=== PATIENT | male | born 1950 | race Two or more races ===

== ENCOUNTER 2024-12-21 06:51 | Inpatient (IN) | payer MEDICARE, OTHER ==
[~2024-12-21] VITALS: Ht 167.6 cm; Wt 85.0 kg
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
[2024-12-21 07:42] LABS: Basophils # (auto) 0 10 ^3/uL (0-0.2); Basophils % (auto) 0.3 % (0.0-2.0); Eosinophils # (auto) 0.1 10 ^3/uL (0-0.8); Eosinophils % (auto) 1.3 % (0.0-7.0); Hematocrit 41.4 % (41.0-53.0); Hemoglobin 14.3 g/dL (13.5-17.5); Lymphocytes # (auto) 2.4 10 ^3/uL (0.4-5.4); Lymphocytes % (auto) 32.8 % (10.0-50.0); Mean Corpuscular Hemoglobin 33.2 pg (28.0-32.0); Mean Corpuscular Hgb Conc. 34.5 g/dL (32.0-36.0); Monocytes # (auto) 0.5 10 ^3/uL (0-1.3); Monocytes % (auto) 6.4 % (0.0-12.0); Neutrophils # (auto) 4.3 10 ^3/uL (1.6-8.6); Neutrophils % (auto) 59.2 % (37.0-80.0); Nucleated Red Blood Cells % 0.1 %; Platelet Count (auto) 153 10^3/uL (140-450); Red Blood Cells 4.31 10^6/uL (4.5-5.90); Red Cell Distribution Width 13.8 % (11.8-14.3); White Blood Cell 7.3 10^3/uL (4.4-10.8)
[2024-12-21 07:52] LABS: Anion Gap 9 (5-15); Carbon Dioxide 25 mmol/L (20-31); Sodium 142 mmol/L (136-145)
[2024-12-21 07:53] LABS: Calcium 9.2 mg/dL (8.7-10.4)
[2024-12-21 07:58] LABS: BUN/Creatinine Ratio 13.9 (10.0-20.0); Blood Urea Nitrogen 14 mg/dL (9-23)
[2024-12-21 07:59] LABS: Chloride 108 mmol/L (98-107); Glucose 123 mg/dL (74-106)
[2024-12-21] MEDS: ACETAMINOPHEN 325 MG TAB PO ONE (08:07)
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
[2024-12-21 11:12] LABS: Urine Bacteria None Seen /hpf (None Seen)
[2024-12-21 11:19] LABS: Urine Blood Negative /uL (Negative); Urine Clarity Clear (Clear); Urine Color Light-Yellow (Yellow); Urine Protein, UAD Negative (Negative); Urine Specific Gravity 1.007 (1.001-1.035); Urine Squamous Epithelial Cell None Seen /hpf (<5); Urine Urobilinogen Normal (Negative); Urine WBC < 1 /HPF (0-3)
[2024-12-21] MEDS ORDERED: MORPHINE SULFATE INJ 2 MG/ml SYRG IV PRN ×2 (11:30)
[2024-12-21] MEDS ORDERED: NITROGLYCERIN 0.4 MG SL TAB SL PRN (11:30)
[2024-12-21] MEDS ORDERED: DOCUSATE SOD 100 MG CAP PO PRN (11:30)
[2024-12-21] MEDS ORDERED: ONDANSETRON HCL 4 MG/2 ML VIAL IV PRN (11:30)
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
[2024-12-21] MEDS: hydroCHLOROthiazide 25 MG TAB PO ONE (12:18)
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
[2024-12-21] MEDS ORDERED: hydrALAZINE HCL 20 MG/ML VL IV PRN (15:30)
[2024-12-21 21:09] VITALS: PULSE 59; RESP 14; O2SAT 96
[2024-12-21 22:23] VITALS: BP 133/67; PULSE 48; RESP 18; TEMP 98.6; O2SAT 96
[2024-12-21] MEDS: HYDROcodone-ACET 5/325MG TAB PO PRN (22:23)
[2024-12-22] VITALS (11 sets, daily range): BP systolic 130–154; BP diastolic 62–91; PULSE 45–66; RESP 18–19; TEMP 97.9–98.6; O2SAT 96–100
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
[2024-12-22 06:36] LABS: Basophils # (auto) 0 10 ^3/uL (0-0.2); Basophils % (auto) 0.4 % (0.0-2.0); Eosinophils # (auto) 0.1 10 ^3/uL (0-0.8); Eosinophils % (auto) 2.1 % (0.0-7.0); Hematocrit 44.3 % (41.0-53.0); Hemoglobin 15.1 g/dL (13.5-17.5); Lymphocytes # (auto) 1.8 10 ^3/uL (0.4-5.4); Lymphocytes % (auto) 32.5 % (10.0-50.0); Mean Corpuscular Hgb Conc. 34.1 g/dL (32.0-36.0); Mean Corpuscular Volume 96.7 fL (80.0-100.0); Monocytes # (auto) 0.5 10 ^3/uL (0-1.3); Monocytes % (auto) 8.1 % (0.0-12.0); Neutrophils # (auto) 3.2 10 ^3/uL (1.6-8.6); Neutrophils % (auto) 56.9 % (37.0-80.0); Nucleated Red Blood Cells % 0.1 %; Platelet Count (auto) 143 10^3/uL (140-450); Red Blood Cells 4.58 10^6/uL (4.5-5.90); White Blood Cell 5.6 10^3/uL (4.4-10.8)
[2024-12-22 06:45] LABS: Albumin 4.2 g/dL (3.2-4.8); Anion Gap 10 (5-15); BUN/Creatinine Ratio 15.1 (10.0-20.0); Blood Urea Nitrogen 14 mg/dL (9-23); Calcium 9.8 mg/dL (8.7-10.4); Carbon Dioxide 25 mmol/L (20-31); Chloride 104 mmol/L (98-107); Glucose 102 mg/dL (74-106); Potassium 4.6 mmol/L (3.5-5.1); Sodium 139 mmol/L (136-145); Total Protein 7.1 g/dL (5.7-8.2)
[2024-12-22 06:49] LABS: Alanine Aminotransferase 51 U/L (7-40); Alkaline Phosphatase 150 U/L (46-116); Aspartate Aminotransferase 47 U/L (<34); Bilirubin, Total 1.2 mg/dL (0.2-1.0)
[2024-12-22] MEDS: hydroCHLOROthiazide 25 MG TAB PO SCH (10:07)
[2024-12-22] MEDS: ACETAMINOPHEN 325 MG TAB PO PRN (10:08)
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
--- NOTE | 2024-12-22 14:30 | ECG ---
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
--- NOTE | 2024-12-22 14:31 | ECG ---
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
--- NOTE | 2024-12-22 16:11 | DVHSR ---
APPROVED REPORT EXAM: Two-dimensional and M-mode echocardiogram with Doppler and color Doppler. Blood Pressure: 157/101 mmHg INDICATION chest congestion, new bradycardia RISK FACTORS Height: 66, Weight: 190 DIMENSIONS LVDd (3.8-5.7cm)LA (2D)3.4 (1.9-4.0cm)Aortic Root3.3 (2.0-3.7cm) LVDs (2.5-4.0cm)LA (MM) (1.9-4.0cm)Aortic Cusp Exc1.6 (1.5-2.0cm) EF (%) 70.0 (55-70%)Rt. Atrium3.6 (1.9-4.0cm)Asc. Aorta cm Mitral Valve MitralMitral Stenosis E wave1.15m/sMV Mean GR.mmHg A wave1.02m/sMV Peak GR.21mmHg E/A ratio1.12D MVAcm2 DECEL [id number] 1/2 [id number] IVRTmsDop MVA3.93cm2 Aortic Valve Aortic ValveAortic Stenosis V11.30m/Christiano Mean GR.4mmHg V21.46m/Christiano Peak GR.9mmHg LVOT Diameter2.1 (1.8-2.4cm)Doppler AVA3.08cm2 Pulmonic Valve V21.04m/s Tricuspid Valve TR Velocity2.45m/s [id number] Other Information Technically limited study due to body habitus and patient position. Conclusion LVEF 50-55%, mild diastolicy dysfunction RV mildly dilated with normal function no pericardial effusion
[2024-12-22] MEDS: traMADol HCL 50 MG TAB PO PRN (16:21)
[2024-12-23 01:00] VITALS: BP 137/88; PULSE 45; RESP 18; TEMP 98.6; O2SAT 99
[2024-12-23 05:00] VITALS: BP 131/81; PULSE 50; RESP 18; TEMP 98.4; O2SAT 97
[2024-12-23 08:00] VITALS: PULSE 50
[2024-12-23 09:00] VITALS: BP 133/71; PULSE 54; RESP 15; TEMP 97.8; O2SAT 92
[2024-12-23] MEDS ORDERED: TRAM-626 PO (10:46)
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
[2024-12-23 11:17] LABS: Hepatitis B Surface Antigen Negative (Negative); Hepatitis C Antibody Negative (Negative)
[2024-12-23] MEDS ORDERED: TRAM50TA2 PO (11:20)
[2024-12-23 12:32] VITALS: BP 121/72; PULSE 52; RESP 15; TEMP 98.1; O2SAT 92
[2024-12-23 13:10] VITALS: BP 133/71; TEMP 36.7
== END 2024-12-23 13:41 | disposition home or self-care (01) | DRG 605 ==
LOC: ER 06:51 → EDBD 06:51 → OVERFLOW 11:24 → TELE-WESTW 23:56
PROVIDERS: ADMIT Family Medicine; ATTEND Family Medicine
DX: S20.211A Contusion of right front wall of thorax, initial encounter (principal); I10 Essential (primary) hypertension; R00.1 Bradycardia, unspecified; Z86.16 Personal history of COVID-19; Z90.49 Acquired absence of other specified parts of digestive tract; V89.2XXA Person injured in unspecified motor-vehicle accident, traffic, initial encounter; Y93.89 Activity, other specified; Y92.488 Other paved roadways as the place of occurrence of the external cause; Y99.8 Other external cause status
CPT/HCPCS: 36415; 70450; 71046; 71250; 73110; 80048; 80053; 81001; 84484; 85025; 86803; 87340; 93005; 93306; 99291; G0378

== ENCOUNTER 2025-01-17 06:17 | Outpatient (CLI) | payer MEDICARE ==
[~2025-01-17 06:17] MED LIST: TRAM50TA2 PO
[2025-01-17 06:40] LABS: Hematocrit 43.7 % (41.0-53.0); Hemoglobin 14.8 g/dL (13.5-17.5); Mean Corpuscular Hemoglobin 32.6 pg (28.0-32.0); Mean Corpuscular Volume 96.3 fL (80.0-100.0); Nucleated Red Blood Cells % 0.0 %
[2025-01-17 06:50] LABS: Urine Protein, UAD Negative (Negative)
[2025-01-17 08:27] LABS: Alanine Aminotransferase 39 U/L (7-40); Albumin 4.2 g/dL (3.2-4.8); Anion Gap 10 (5-15); BUN/Creatinine Ratio 22.0 (10.0-20.0); Bilirubin, Total 0.8 mg/dL (0.2-1.0); Blood Urea Nitrogen 20 mg/dL (9-23); Calcium 9.7 mg/dL (8.7-10.4); Carbon Dioxide 22 mmol/L (20-31); Cholesterol 175 mg/dL (< 200); Potassium 4.3 mmol/L (3.5-5.1); Sodium 141 mmol/L (136-145); Total Protein 6.8 g/dL (5.7-8.2); Triglycerides 84 mg/dL (< 150)
[2025-01-17 08:28] LABS: Alkaline Phosphatase 197 U/L (46-116); Chloride 109 mmol/L (98-107); Glucose 112 mg/dL (74-106); HDL Cholesterol 68 mg/dL (40-59)
== END 2025-01-17 17:00 | disposition home or self-care (01) ==
LOC: LAB 06:17
PROVIDERS: ATTEND Internal Medicine
DX: I10 Essential (primary) hypertension (principal); R05.9 Cough, unspecified; R00.1 Bradycardia, unspecified; Z00.01 Encounter for general adult medical examination with abnormal findings; E11.9 Type 2 diabetes mellitus without complications
CPT/HCPCS: 36415; 80053; 80061; 81001; 83036; 84439; 84443; 85025